=== PATIENT | male | born 1955 | race Caucasian/White ===

== ENCOUNTER 2021-05-06 09:57 | Inpatient (IN) | payer SELFPAY ==
[2021-05-06 10:28] VITALS: BMI 29.0
[2021-05-06] MEDS ORDERED: Ondansetron PF 4 MG/2 ML Vial ONE (12:20)
[2021-05-06] MEDS ORDERED: Dexamethasone 20 MG/5 ML VIAL ONE (12:20)
[2021-05-06] MEDS ORDERED: Succinylcholine 200 MG/10 ml SYRINGE FS ONE (12:20)
[2021-05-06] MEDS ORDERED: PROPOFOL 200 MG/20 ML VIAL ONE (12:20)
[2021-05-06] MEDS ORDERED: Lidocaine 1% PF 5 ML VIAL ONE (12:20)
[2021-05-06] MEDS ORDERED: Acetaminophen 325 MG TAB PO PRN (12:26)
[2021-05-06] MEDS ORDERED: Ondansetron PF 4 MG/2 ML Vial IVP PRN (12:26)
[2021-05-06] MEDS ORDERED: Dextrose 50% Abboject 50 ML SYRINGE SLOW IVP PRN (12:30)
[2021-05-06] MEDS ORDERED: Dextrose 5% in Water 1,000 ML IV PRN (12:30)
[2021-05-06] MEDS ORDERED: Ondansetron HCl/PF 4 MG/2 ML Vial IVP PRN (12:59)
[2021-05-06] MEDS ORDERED: Promethazine HCl 25 MG/ML VIAL IM PRN (12:59)
[2021-05-06] MEDS ORDERED: Promethazine HCl 25 MG/ML VIAL IVPB PRN (12:59)
[2021-05-06] MEDS ORDERED: Meperidine HCl/PF 25 MG/ML VIAL SLOW IVP PRN (12:59)
[2021-05-06] MEDS: Sodium Chloride 0.9% 1,000 ML IV SCH (19:17)
[2021-05-06] MEDS: HumaLOG 300 UNITS/3 ML VIAL SC PRN (21:37)
[2021-05-07] MEDS: HumaLOG 300 UNITS/3 ML VIAL SC PRN ×2 (06:04→14:57)
[2021-05-07 07:45] LABS: #Lymphocytes 1.4 thou/uL (1.20-3.40); #Monocytes 0.2 thou/uL (0.11-0.59); #Neutrophils 6.3 thou/uL (1.40-6.50); %Basophils 0.1 % (0.0-1.0); %Eosinophils 0.1 % (0.0-10.0); %Monocytes 2.6 % (0.0-10.0); %Neutrophils 79.2 % (42.0-75.0); Hemoglobin 11.6 g/dL (14.0-18.0); Mean Corpuscular HGB CONC 31.8 g/dL (32.0-36.0); Mean Corpuscular Hemoglobin 30.3 pg (27.0-31.0); Mean Corpuscular Volume 95.4 fL (78.0-98.0); Mean Platelet Volume 6.7 fL (7.4-10.4); Platelet Count 424 thou/uL (130-400); RBC Distribution Width 12.9 % (11.5-14.5); Red Blood Cell (RBC) Count 3.82 mill/uL (4.70-6.10)
[2021-05-07 07:59] LABS: Anion Gap 18 mmol/L (10-20); BUN (Urea Nitrogen) 18 mg/dL (8.4-25.7); Calc. Creatinine Clearance 76 mL/min (70-130); Calcium 8.7 mg/dL (7.8-10.44); Carbon Dioxide 26 mmol/L (23-31); Chloride 96 mmol/L (98-107); Glucose 250 mg/dL (80-115); Potassium 4.8 mmol/L (3.5-5.1); Sodium 135 mmol/L (136-145)
[2021-05-07 08:00] LABS: ALT (SGPT) 12 U/L (8-55); AST (SGOT) 15 U/L (5-34); Albumin 3.2 g/dL (3.4-4.8); Alkaline Phosphatase 100 U/L (40-110); Bilirubin, Direct 0.2 mg/dL (0.1-0.3); Bilirubin, Total 0.3 mg/dL (0.2-1.2); Protein, Total 6.9 g/dL (5.8-8.1)
[2021-05-07] MEDS ORDERED: Sodium Chloride 0.9% 1,000 ML IV SCH (08:48)
[2021-05-07] MEDS ORDERED: Pantoprazole 40 MG VIAL IVP SCH (09:00)
[2021-05-07] MEDS ORDERED: Enoxaparin Sodium 40 MG/0.4 ML SYRINGE SC SCH (09:00)
[2021-05-07] MEDS ORDERED: Sodium Chloride 0.9% 500 ML IV SCH (09:00)
[2021-05-07] MEDS ORDERED: Lantus 1000 UNITS/10 ML VIAL SC SCH (09:00)
[2021-05-07 15:49] VITALS: BP 146/78; TEMP 97.5
[2021-05-07] MEDS: Sodium Chloride 0.9% 1,000 ML IV SCH (16:04)
== END 2021-05-07 15:26 | disposition short-term general hospital (02) | DRG 437 ==
LOC: SJJU 10:07 → EDBD 10:07
PROVIDERS: ADMIT Student in an Organized Health Care Education/Training Program; ATTEND Family Medicine
PROC: 0DB98ZX Excision of Duodenum, Via Natural or Artificial Opening Endoscopic, Diagnostic (ICD-10-PCS; principal; 2021-05-06)
PROC: 0D9670Z Drainage of Stomach with Drainage Device, Via Natural or Artificial Opening (ICD-10-PCS; 2021-05-06)
DX: C23 Malignant neoplasm of gallbladder (principal); E11.65 Type 2 diabetes mellitus with hyperglycemia; E11.43 Type 2 diabetes mellitus with diabetic autonomic (poly)neuropathy; K31.84 Gastroparesis; Z87.891 Personal history of nicotine dependence; K21.00 Gastro-esophageal reflux disease with esophagitis, without bleeding
CPT/HCPCS: 36415; 36416; 80048; 80076; 85025; 88305; 88342; J1100; J1650; J1815; J2405; J2704; J7030; J7050